=== PATIENT | female | born 1975 | race Caucasian/White ===

== ENCOUNTER 2018-02-10 03:28 | Emergency (ER) | payer OTHER, SELFPAY ==
--- NOTE | 2018-02-10 03:30 | ED_ITS ---
HPI - Dizziness General Chief Complaint: Dizziness Stated Complaint: FEELS DIZZY AND NAUSEAOUS Time Seen by Provider: 02/10/18 03:29 Source: patient Mode of arrival: ambulatory Limitations: no limitations History of Present Illness HPI Narrative: Patient is a 43-year-old female with a history of non-insulin- dependent diabetes and high cholesterol here for evaluation of vertigo and nausea and vomiting. Patient states that it occurred prior to arrival. She states she was lying in bed not having any symptoms which she turned to her side and had a sudden onset of room spinning sensation. She states that she did feel like her heart was beating fast at the time however she states that she ?always has a high heart rate ?. Patient states she became extremely nauseous at the time. States that she did feel better after she vomited. Upon my evaluation in the emergency department she reported a great improvement in her symptoms. Denied any other neurologic symptoms. Did not pass out. No trauma. States that she has had this in the past. However Has never been diagnosed with vertigo in the past. She states the last time this happened she became very nauseous and then threw up and felt much better afterwards. Related Data Home Medications Medication Instructions Recorded Confirmed amlodipine [Norvasc] 5 mg PO QDAY #0 tab 02/24/16 atorvastatin [Lipitor] 20 mg PO HS #30 tab 02/24/16 empagliflozin [Jardiance] 10 mg PO #0 02/24/16 glipizide 10 mg PO BID #0 03/15/17 Previous Rx's Medication Instructions Recorded norethindrone acetate 5 mg tablet 10 mg PO DAILY #60 tab 01/05/18 meclizine 25 mg PO BID-TID PRN #20 tab 02/10/18 Allergies Allergy/AdvReac Type Severity Reaction Status Date / Time latex Allergy Mild RASH Unverified 10/06/17 11:57 nickel Allergy Mild RASH Unverified 10/06/17 11:57 Review of Systems Constitutional Denies fatigue, Denies fever(s) and Denies headache(s) Eyes Denies diplopia and Denies dry eyes ENT Ears, Nose, Mouth, and Throat: Reports vertigo, Reports dizziness, Denies headache(s), Denies neck pain and Denies tinnitus Cardiovascular Denies chest pain, Reports rapid heart rate, Denies palpitations and Denies dyspnea Respiratory Denies dyspnea Gastrointestinal Gastrointestinal: Denies abdominal pain, Reports nausea and Reports vomiting Musculoskeletal Denies myalgias, Denies arthralgias and Denies neck pain Integumentary/Breasts Denies lesions and Denies rash Neurologic Reports vertigo, Reports dizziness and Denies headache(s) Endocrine Denies fatigue and Denies palpitations Hematologic/Lymphatic Denies easy bleeding and Denies easy bruising [facility] Medical History Diabetes (Acute) Hyperlipidemia (Acute) Surgical History History of third molar tooth extraction Status post dilation and curettage Status post tonsillectomy and adenoidectomy Family History Brother Age: 46 Heart disease Mother Age: 69 Multiple sclerosis Social History Smoking Status: Never smoker Exam Initial Vital Signs Initial Vital Signs: Vital Signs Temperature 97.6 F 02/10/18 03:37 Pulse Rate 114 H 02/10/18 03:37 Respiratory Rate 20 02/10/18 03:37 Blood Pressure 150/86 H 02/10/18 03:37 Pulse Oximetry 98 02/10/18 03:37 Const General: cooperative, healthy appearing, comfortable, well developed, well groomed and No acute distress Orientation: alert, awake and oriented x3 HENMT Head: normal to inspection, normocephalic and atraumatic Ears: TM's normal bilaterally Nose: external nose normal Face and sinus: normal facial exam Mouth: oral mucosae normal Throat: posterior oropharynx normal Eyes General: appearance normal, both eyes and all related structures Pupils: PERRL EOM: EOM intact bilaterally Resp Effort & Inspection: normal respiratory effort Auscultation: clear to auscultation bilaterally Cardio Rate: tachycardic Rhythm: regular rhythm Heart Sounds: murmur systolic III/ Pulses: radial pulses present Neuro General: alert, awake and oriented x3 Cranial Nerves: CN's II-XI intact bilaterally Cognition: normal cognition Speech: speech normal Gait: normal gait Motor: muscle tone normal throughout Sensory Exam: no sensory deficits noted Extrem General: normal to inspection and capillary refill normal Psych Appearance: grossly normal and well kempt Course Orders Ordered: Discontinued Medications Meclizine HCl (Antivert) 25 mg PO NOW ONE Stop: 02/10/18 03:48 Vital Signs - 8 hr 02/10/18 03:37 Temperature 97.6 F Pulse Rate 114 H Respiratory Rate 20 Blood Pressure 150/86 H Pulse Oximetry 98 MDM - Dizziness MDM Narrative Medical decision making narrative: Patient is tachycardic however she states that she always has a high heart rate. Does have a systolic ejection murmur which the patient states she has never been diagnosed with in the past. Did have positional vertigo. She reports her symptoms have greatly improved prior to my evaluation compared with the onset of the symptoms prior to arrival. She states that she got much better after she threw up. Has a nonfocal neurologic exam here in the ER. Will hold on head CT or labs for now. Heart rate is fast however regular, does not fit the physical exam for atrial fibrillation. Patient was given meclizine here in the emergency department. Will send home with a prescription for this medicine. She was given return precautions. She expressed understanding and agreement with plan. Discharge Plan Departure Patient Disposition: Home, Self-Care Clinical Impression: Vertigo Instructions: Vertigo (Alternative Therapy), DI for Vertigo Activity Restrictions/Additional Instructions: Continue all of your medications at home. The prescription that you were given this evening is and as needed medicine. Return to the emergency department for any new symptoms, worsening symptoms, symptoms associated with headaches, passing out, irregular heartbeats, numbness and tingling the arms and legs or any other concerning symptoms. Prescriptions: New meclizine 25 mg tablet 25 mg PO BID-TID PRN (Reason: motion sickness) Qty: 20 RF: 0 No Action empagliflozin [Jardiance] 10 MG tablet 10 mg PO Qty: 0 RF: 0 atorvastatin [Lipitor] 20 MG tablet 20 mg PO HS Qty: 30 RF: 0 amlodipine [Norvasc] 5 MG tablet 5 mg PO QDAY Qty: 0 RF: 0 glipizide 10 MG tablet 10 mg PO BID Qty: 0 RF: 0 norethindrone acetate [Aygestin] 5 mg tablet 10 mg PO DAILY Qty: 60 RF: 1
[2018-02-10 03:37] VITALS: BP 150/86; PULSE 114; RESP 20; TEMP 36.4; O2SAT 98; BMI 40.7
[2018-02-10] MEDS: MECLIZINE HCL 12.5 MG TABLET 25 MG PO (03:54)
[2018-02-10 04:16] VITALS: BP 149/81; PULSE 96; RESP 18; O2SAT 98
== END 2018-02-10 04:16 | disposition home or self-care (01) ==
PROVIDERS: Emergency Provider Emergency Medicine
DX: R42 Dizziness and giddiness (principal)
CPT/HCPCS: 99282; 99283

== ENCOUNTER 2018-03-19 08:05 | Emergency (ER) | payer OTHER, SELFPAY ==
[2018-03-19 08:18] VITALS: BP 165/90; PULSE 90; RESP 14; TEMP 37.1; O2SAT 100
--- NOTE | 2018-03-19 08:18 | ED.UPPEXIN ---
HPI - Extremity Injury (Upper) General Chief Complaint: Extremity Injury, Upper Stated Complaint: left shoulder pain Time Seen by Provider: 03/19/18 08:15 Source: patient Mode of arrival: ambulatory Limitations: no limitations History of Present Illness HPI narrative: 43-year-old nonsmoking female with history of hypertension and hyperlipidemia presents with left upper extremity pain after trying to get into her clothing after shower last night. While putting her left arm through the sleeve of assured she felt a pop and now has ongoing pain. She has not taken any medications to help her pain. She denies history of shoulder injury. She denies numbness, tingling or weakness. She is otherwise well and free of complaint. Her pain is worse with motion and improves with rest MD complaint: injury to: left and shoulder Onset (ago): hour(s) Other injuries: none Handedness: right Place: home Severity: mild Relieving factors: rest Exacerbating factors: movement of extremity Associated symptoms: denies other symptoms Related Data Home Medications Medication Instructions Recorded Confirmed amlodipine [Norvasc] 5 mg PO QDAY #0 tab 02/24/16 atorvastatin [Lipitor] 20 mg PO HS #30 tab 02/24/16 empagliflozin [Jardiance] 10 mg PO #0 02/24/16 glipizide 10 mg PO BID #0 03/15/17 Previous Rx's Medication Instructions Recorded meclizine 25 mg PO BID-TID PRN #20 tab 02/10/18 norethindrone acetate 5 mg tablet 10 mg PO DAILY #60 tab 03/08/18 ketorolac 10 mg PO Q6H PRN #14 tab 03/19/18 Allergies Allergy/AdvReac Type Severity Reaction Status Date / Time latex Allergy Mild RASH Unverified 10/06/17 11:57 nickel Allergy Mild RASH Unverified 10/06/17 11:57 Review of Systems Review of Systems All systems reviewed & are unremarkable except as noted in HPI and below Constitutional Denies chills, Denies fever(s), Denies lethargy and Denies weakness Eyes Denies change in vision, Denies eye discharge, Denies irritation and Denies loss of vision ENT Ears, Nose, Mouth, and Throat: Denies change in voice, Denies neck pain and Denies sore throat Cardiovascular Denies chest pain, Denies irregular heart rhythm, Denies lightheadedness, Denies palpitations, Denies dyspnea, Denies dyspnea on exertion and Denies orthopnea Respiratory Denies cough, Denies dyspnea, Denies dyspnea on exertion and Denies wheezing Gastrointestinal Gastrointestinal: Denies abdominal pain, Denies change in bowel habits, Denies diarrhea, Denies nausea and Denies vomiting Genitourinary Denies hematuria, Denies flank pain, Denies urinary incontinence and Denies urinary urgency Musculoskeletal Reports limited range of motion and Denies neck pain Integumentary/Breasts Denies pruritus, Denies erythema, Denies rash and Denies wounds Neurologic Denies confusion, Denies loss of vision and Denies weakness Psychiatric Denies anxiety, Denies confusion, Denies depression, Denies homicidal ideation and Denies suicidal ideation Endocrine Denies palpitations Hematologic/Lymphatic Denies easy bruising Allergic/Immunologic Denies wheezing [facility] Medical History Diabetes (Acute) Hyperlipidemia (Acute) Surgical History History of third molar tooth extraction Status post dilation and curettage Status post tonsillectomy and adenoidectomy Family History Brother Age: 46 Heart disease Mother Age: 69 Multiple sclerosis Social History Smoking Status: Never smoker Exam Narrative Exam Narrative: GEN: AOx3 and in mild distress EYES: Pupils are equal, round, and reactive to light and accommodation. Extraoccular muscles are intact bilaterally. There is no subconjunctival hemorrhage or exudate. CHEST: Lungs are clear to auscultation bilaterally and free of wheezes, rales, or rhonchi. Heart rate is regular rhythm, there are no murmurs, clicks, rubs, or gallops. There is no chest wall tenderness. ABD: Abdomen is soft and nontender. There is no guarding or rebound. Bowel sounds are normal in all 4 quadrants. There is no mass or organomegaly. EXT: Full but painful range of motion of left shoulder. Full strength, no numbness, tingling or weakness SKIN: Warm, pink, and dry. No erythema or rash Initial Vital Signs Initial Vital Signs: Vital Signs Temperature 98.8 F 03/19/18 08:18 Pulse Rate 90 03/19/18 08:18 Respiratory Rate 14 03/19/18 08:18 Blood Pressure 165/90 H 03/19/18 08:18 Pulse Oximetry 100 03/19/18 08:18 Procedures Orthopedic Splinting/Casting Injury #1: Side: left Upper Extremity Injury Location: shoulder Upper Extremity Immobilizer: sling/shoulder immobilizer Course Orders Ordered: Discontinued Medications Ibuprofen (Advil) 800 mg PO NOW ONE Stop: 03/19/18 08:30 Last Admin: 03/19/18 08:34 Dose: 800 mg Vital Signs - 8 hr 03/19/18 08:18 Temperature 98.8 F Pulse Rate 90 Respiratory Rate 14 Blood Pressure 165/90 H Pulse Oximetry 100 Discharge Plan Departure Patient Disposition: Home Clinical Impression: Muscle strain of left shoulder Discharge Date/Time: 03/19/18 08:53 Interventions: ED Discharge Assessment Last Done: 03/19/18 08:52 Instructions: DI for Shoulder Sprain Activity Restrictions/Additional Instructions: *You have been diagnosed with [ left shoulder strain ] *What to do: *Take medications as directed: Here prescription has been electronically transmitted to the [facility] at your request *Follow up with your primary care provider in 2-3 days, call for an appointment. Let them know you were seen in the Emergency Department and that we ask that you be seen in follow up *Return to ER if you should have any new, worsening or concerning symptoms Prescriptions: New ketorolac 10 mg tablet 10 mg PO Q6H PRN (Reason: pain) Qty: 14 RF: 0 No Action empagliflozin [Jardiance] 10 MG tablet 10 mg PO Qty: 0 RF: 0 atorvastatin [Lipitor] 20 MG tablet 20 mg PO HS Qty: 30 RF: 0 amlodipine [Norvasc] 5 MG tablet 5 mg PO QDAY Qty: 0 RF: 0 glipizide 10 MG tablet 10 mg PO BID Qty: 0 RF: 0 norethindrone acetate [Aygestin] 5 mg tablet 10 mg PO DAILY Qty: 60 RF: 1 meclizine 25 mg tablet 25 mg PO BID-TID PRN (Reason: motion sickness) Qty: 20 RF: 0
[2018-03-19] MEDS: IBUPROFEN 400 MG TABLET 800 MG PO (08:34)
== END 2018-03-19 08:53 | disposition home or self-care (01) ==
PROVIDERS: Emergency Provider Emergency Medicine
DX: S46.912A Strain of unspecified muscle, fascia and tendon at shoulder and upper arm level, left arm, initial encounter (principal); X50.9XXA Other and unspecified overexertion or strenuous movements or postures, initial encounter
CPT/HCPCS: 99282; 99283

== ENCOUNTER 2019-09-17 06:34 | Emergency (ER) | payer OTHER, SELFPAY ==
[2019-09-17 06:40] VITALS: BP 162/88; PULSE 117; RESP 19; TEMP 37.1; O2SAT 97; BMI 39.4
[2019-09-17 07:00] VITALS: BP 161/86; PULSE 124; RESP 33; O2SAT 98
--- NOTE | 2019-09-17 07:07 | ED.SOB ---
HPI - SOB/Dyspnea General Chief Complaint: Upper Respiratory Symptoms Stated Complaint: cough x10 days/exposure to virus Time Seen by Provider: 09/17/19 07:07 Source: patient Mode of arrival: Ambulatory Limitations: no limitations History of Present Illness HPI Narrative: 44-year-old female nonsmoker with history of diabetes presents after being contacted by [facility] for exposure to menjivar virus about 10 days ago. About a week ago she started developing cough but denies any headache, sore throat or fever. She denies any chest pain or significant shortness of breath. She denies any GI complaints such as nausea, vomiting or diarrhea outside of the normal for her. She denies any dysuria, frequency or urgency. She has had no recent travel. Patient placed in droplet precautions MD Complaint: shortness of breath and cough Onset (ago): day(s) Context: other Severity: moderate Consistency/Duration: intermittent Relieving factors: nothing Exacerbating factors: nothing Associated symptoms: denies other symptoms Treatment prior to arrival: none Related Data Home oxygen amount: none Previous Rx's Medication Instructions Recorded norethindrone acetate 5 mg tablet See Rx Instructions .ROUTE 07/25/19 .COMPLEX #60 tablet metformin 500 mg PO BID #20 tab 09/17/19 Allergies Allergy/AdvReac Type Severity Reaction Status Date / Time latex Allergy Mild RASH Verified 03/21/19 15:24 nickel Allergy Mild RASH Verified 03/21/19 15:24 Review of Systems Constitutional Constitutional: Denies chills, Denies fatigue, Denies fever(s), Denies frequent falls, Denies lethargy and Denies weakness Eyes Eyes: Denies change in vision, Denies eye discharge, Denies irritation and Denies loss of vision ENT Ears, Nose, Mouth, and Throat: Denies change in voice, Denies dizziness, Denies neck pain, Denies sore throat and Denies throat swelling Cardiovascular Cardiovascular: Denies chest pain, Denies irregular heart rhythm, Denies lightheadedness, Denies palpitations, Denies dyspnea, Denies dyspnea on exertion and Denies orthopnea Respiratory Respiratory: Reports cough, Denies dyspnea, Denies dyspnea on exertion and Denies wheezing Gastrointestinal Gastrointestinal: Denies abdominal pain, Denies change in bowel habits, Denies diarrhea, Denies nausea and Denies vomiting Genitourinary Genitourinary: Denies hematuria, Denies flank pain, Denies urinary incontinence and Denies urinary urgency Musculoskeletal Musculoskeletal: Denies back pain, Denies muscle weakness, Denies neck pain, Denies numbness and Denies tingling Integumentary/Breasts Skin/Breast: Denies pruritus, Denies erythema, Denies rash and Denies wounds Neurologic Neurologic: Denies behavioral changes, Denies confusion, Denies dizziness, Denies frequent falls, Denies loss of vision, Denies numbness, Denies tingling and Denies weakness Psychiatric Psychiatric: Denies anxiety, Denies behavioral changes, Denies confusion, Denies depression, Denies homicidal ideation and Denies suicidal ideation Endocrine Endocrine: Denies fatigue, Denies flushing and Denies palpitations Hematologic/Lymphatic Hematologic/Lymphatic: Denies easy bruising Allergic/Immunologic Allergic/Immunologic: Denies urticaria, Denies throat swelling and Denies wheezing Patient History Medical History Diabetes (Chronic) Hyperlipidemia (Chronic) Surgical History Anesthesia (Resolved) History of removal of cyst (Resolved 01/1994) History of third molar tooth extraction (Resolved) Status post dilation and curettage (Resolved 2013) Status post tonsillectomy and adenoidectomy (Resolved 1979) Family History Brother Age: 48 Heart disease Diabetes mellitus Mother Age: 71 Multiple sclerosis Brother No problems noted. Father No problems noted. Grandfather No problems noted. Grandmother Cancer Grandfather Heart disease Grandmother No problems noted. Social History Smoking Status: Former smoker Smoking Status: Former smoker Substance Use Type: does not use Exam Narrative Exam Narrative: GENERAL: [44] year old patient appears stated age. Well-nourished, well-developed patient, in mild distress. HEAD: Atraumatic. Normocephalic. EYES: Pupils equal round and reactive. Extraocular motions intact. No scleral icterus. No injection or drainage. ENT: Nose without bleeding, purulent drainage. Throat without erythema, tonsillar hypertrophy or exudate. Airway patent. NECK: Trachea midline. Non tender CARDIOVASCULAR: Tachycardic but regular rhythm without murmurs, gallops, or rubs. RESPIRATORY: Tachypneic Clear to auscultation. Breath sounds equal bilaterally. No wheezes, rales, or rhonchi. GASTROINTESTINAL: Abdomen soft, non-tender, nondistended. EXTREMITIES: No edema or joint tenderness. BACK: Nontender without deformity or crepitance. No flank tenderness. NEURO: AOx3. SKIN: No rash or erythema of visible areas Initial Vital Signs Initial Vital Signs: Vital Signs Temperature 98.7 F 09/17/19 06:40 Pulse Rate 117 H 09/17/19 06:40 Respiratory Rate 19 09/17/19 06:40 Blood Pressure 162/88 H 09/17/19 06:40 Pulse Oximetry 97 09/17/19 06:40 Course Orders Ordered: ED Orders 09/17/19 07:39 Chest [XR chest 1V] Stat 09/17/19 08:10 C-Reactive Protein Quant Stat Complete Blood Count AUTO DIFF Stat Comprehensive Metabolic Panel Stat Ferritin Stat Influenza A & B (PCR) Stat Lactate (Lactic Acid) Stat Procalcitonin Stat 09/17/19 08:49 CT chest wo con Stat 09/17/19 09:21 Blood Culture Stat Discontinued Medications Sodium Chloride (Normal Saline 0.9%) 1,000 mls @ 1,000 mls/hr IV BOLUS ONE Stop: 09/17/19 08:19 Last Infusion: 09/17/19 10:23 Dose: 0 mls/hr Documented by: Admin: 09/17/19 08:19 Dose: 1,000 mls/hr Documented by: MARIELA Vital Signs Vital signs: Vital Signs - 8 hr 09/17/19 06:40 09/17/19 07:00 09/17/19 07:30 Temperature 98.7 F Pulse Rate 117 H 124 H 112 H Respiratory Rate 19 33 H 28 H Blood Pressure 162/88 H Blood Pressure [Right Arm] 161/86 H 149/88 H Pulse Oximetry 97 98 98 09/17/19 08:30 09/17/19 09:13 09/17/19 10:22 Temperature 98.2 F Pulse Rate 105 H 106 H 101 H Respiratory Rate 32 H 28 H 26 H Blood Pressure Blood Pressure [Right Arm] 164/89 H 159/77 H 150/76 H Pulse Oximetry 100 99 99 MDM - SOB/Dyspnea Lab Data Result diagrams: 09/17/19 08:10 09/17/19 08:10 Labs: Lab Results 09/17/19 09/17/19 09/17/19 Range/Units 08:10 08:10 08:10 WBC (4.5-11.0) X10^3/uL RBC (4.0-5.2) X10^6/uL Hgb (12.0-16.0) g/dL Hct (36-46) % MCV (80-100) fL MCH (26-34) PG MCHC (30-36) % RDW (11.6-14.8) % Plt Count (150-400) X10^3/uL Neut % (Auto) (50-75) % Lymph % (Auto) (25-40) % Duchesne % (Auto) (3-14) % Eos % (Auto) (2-4) % Baso % (Auto) (0-2) % Neut # (Auto) (1522-0863) /uL Lymph # (Auto) (3342-9694) /uL Duchesne # (Auto) (0-900) /uL Eos # (Auto) (0-450) /uL Baso # (Auto) (0-100) /uL Sodium 137 (137-145) mmol/L Potassium 4.1 (3.4-5.1) mmol/L Chloride 101 (98-107) mmol/L Carbon Dioxide 26 (22-32) mmol/L BUN 5 L (7-17) mg/dL Creatinine 0.42 L (0.52-1.04) mg/dL Estimated GFR > 60.0 (>60) mL/min BUN/Creatinine Ratio 11.9 (6-22) Glucose 397 H (70-100) mg/dL Lactate (0.7-2.1) mmol/L Calcium 9.3 (8.4-10.2) mg/dL Ferritin 30 (6-137) ng/mL Total Bilirubin 0.4 (0.2-1.3) mg/dL AST 36 (14-36) IU/L ALT 38 H (<35) IU/L Alkaline Phosphatase 152 H (38-126) U/L C-Reactive Protein 4.0 H (<1.0) mg/dL Total Protein 7.6 (6.3-8.2) g/dL Albumin 4.0 (3.5-5.0) g/dL Globulin 3.6 (1.7-4.1) g/dL Albumin/Globulin Ratio 1.1 (1.0-2.8) Procalcitonin < 0.05 (<0.5) ng/mL Influenza A (RT-PCR) Flu a negative (NEGATIVE) Influenza B (RT-PCR) Flu b negative (NEGATIVE) 09/17/19 09/17/19 Range/Units 08:10 08:10 WBC 4.1 L (4.5-11.0) X10^3/uL RBC 5.06 (4.0-5.2) X10^6/uL Hgb 14.1 (12.0-16.0) g/dL Hct 42.3 (36-46) % MCV 83.6 (80-100) fL MCH 27.9 (26-34) PG MCHC 33.4 (30-36) % RDW 17.9 H (11.6-14.8) % Plt Count 205 (150-400) X10^3/uL Neut % (Auto) 48.7 L (50-75) % Lymph % (Auto) 35.7 (25-40) % Duchesne % (Auto) 13.9 (3-14) % Eos % (Auto) 1.3 L (2-4) % Baso % (Auto) 0.4 (0-2) % Neut # (Auto) 2000 (2819-9171) /uL Lymph # (Auto) 1400 (6613-9971) /uL Duchesne # (Auto) 600 (0-900) /uL Eos # (Auto) 100 (0-450) /uL Baso # (Auto) 0 (0-100) /uL Sodium (137-145) mmol/L Potassium (3.4-5.1) mmol/L Chloride (98-107) mmol/L Carbon Dioxide (22-32) mmol/L BUN (7-17) mg/dL Creatinine (0.52-1.04) mg/dL Estimated GFR (>60) mL/min BUN/Creatinine Ratio (6-22) Glucose (70-100) mg/dL Lactate 1.6 (0.7-2.1) mmol/L Calcium (8.4-10.2) mg/dL Ferritin (6-137) ng/mL Total Bilirubin (0.2-1.3) mg/dL AST (14-36) IU/L ALT (<35) IU/L Alkaline Phosphatase (38-126) U/L C-Reactive Protein (<1.0) mg/dL Total Protein (6.3-8.2) g/dL Albumin (3.5-5.0) g/dL Globulin (1.7-4.1) g/dL Albumin/Globulin Ratio (1.0-2.8) Procalcitonin (<0.5) ng/mL Influenza A (RT-PCR) (NEGATIVE) Influenza B (RT-PCR) (NEGATIVE) Imaging Data Chest x-ray: Radiologist's Impression: [address] [address] XRay Report Signed Patient: Sheila Beasley LMR#: [id number] : 1975Acct:[id number] Age/Sex: 44 / FDate of Service: 09/17/19 Loc: ED Accession Number: [id number] Procedure: XR chest 1V Ordering Provider: Nick Tejada D.O. PROCEDURE: XR CHEST 1V INDICATIONS: cough, possible covid exposure TECHNIQUE: One view of the chest was acquired. COMPARISON: [facility], MANI, CHEST 1 VIEW, 08/30/2014, 22:14. [facility], RG, XR CXR 2 VIEW, 08/12/2004, 21:54. FINDINGS: Surgical changes and devices: None. Lungs and pleura: Subtle patchy airspace disease appears to be present within the lungs, bilaterally. No effusion or pneumothorax is evident. Mediastinum: Mediastinal contours appear normal. Heart size is normal. Bones and chest wall: No suspicious bony lesions. Overlying soft tissues appear unremarkable. IMPRESSION: Patchy airspace disease is suspicious for pneumonia, which would be compatible with COVID-19. Dictated by: Luis Eduardo Naqvi M.D. on 09/17/2019 at 7:38 Approved by: Luis Eduardo Naqvi M.D. on 09/17/2019 at 7:39 Discharge Plan Departure Patient Disposition: Home Clinical Impression: Pneumonia, viral Discharge Date/Time: 09/17/19 10:41 Activity Restrictions/Additional Instructions: *You have been diagnosed with [ viral pneumonia, which based on your sympotoms, labs and imaging is highly suspicious for coronavirus] *What to do: * per recommendations from the CDC and the [facility] Department of Health * stay home except to get medical care. Restrict activities outside your home, except for getting medical care. Do not go to work, school, or public areas. Avoid using public transportation, ride sharing, or taxis. * separate herself from other people in your home. * call ahead before visiting your doctor * Wear a facemask * Cover your coughs and sneezes * Clean your hands often * Avoid sharing household items * Clean all high-touch services every day * Monitor your symptoms and seek prompt medical attention if your illness is worsening, particularly with difficulty in breathing. Discussed continuing home isolation * for individuals with symptoms who are confirmed or suspected cases of COVID-19 and are directed to care for themselves at home, discontinue home isolation under the following conditions: 1. At least 72 hours have passed since recovery, defined as resolution of fever without the use of fever reducing medications, and improvement in respiratory symptoms (cough, shortness of breath) AND, 2. At least 7 days have passed since symptoms 1st appeared Individuals with laboratory confirmed COVID-19 who have not had any symptoms may discontinue home isolation when at least 7 days have passed since the date of their 1st COVID-19 diagnostic test and have had no subsequent illness Prescriptions: New metformin 500 mg tablet 500 mg PO BID Qty: 20 RF: 0 No Action norethindrone acetate 5 mg tablet See Rx Instructions .ROUTE .COMPLEX Qty: 60 RF: 1 Referrals: Regan Ghotra MD [Primary Care Provider] - Stand Alone Forms: Work Release Note ED Sign-out Cosign ED Attending Cosignature Attestation: I was immediately available in the department for consultation. This documentation has been reviewed and I agree with assessment and plan. Supervised by Nick Tejada DO
[2019-09-17 07:30] VITALS: BP 149/88; PULSE 112; RESP 28; O2SAT 98
--- NOTE | 2019-09-17 07:39 | DI.RAD.S_ITS ---
PROCEDURE: XR CHEST 1V INDICATIONS: cough, possible covid exposure TECHNIQUE: One view of the chest was acquired. COMPARISON: [facility], MANI, CHEST 1 VIEW, 08/30/2014, 22:14. [facility], RG, XR CXR 2 VIEW, 08/12/2004, 21:54. FINDINGS: Surgical changes and devices: None. Lungs and pleura: Subtle patchy airspace disease appears to be present within the lungs, bilaterally. No effusion or pneumothorax is evident. Mediastinum: Mediastinal contours appear normal. Heart size is normal. Bones and chest wall: No suspicious bony lesions. Overlying soft tissues appear unremarkable. IMPRESSION: Patchy airspace disease is suspicious for pneumonia, which would be compatible with COVID-19. Dictated by: Luis Eduardo Naqvi M.D. on 09/17/2019 at 7:38 Approved by: Luis Eduardo Naqvi M.D. on 09/17/2019 at 7:39
[2019-09-17] MEDS: SODIUM CHLORIDE 0.9% 1,000 ML 1000 ML IV (08:19)
[2019-09-17 08:30] VITALS: BP 164/89; PULSE 105; RESP 32; O2SAT 100
[2019-09-17 08:46] LABS: Alanine Aminotransferase 38 IU/L (<35); Albumin Globulin Ratio 1.1 (1.0-2.8); Alkaline Phosphatase 152 U/L (38-126); Aspartate Aminotransferase 36 IU/L (14-36); BUN Creatinine Ratio 11.9 (6-22); Bilirubin Total 0.4 mg/dL (0.2-1.3); Blood Urea Nitrogen 5 mg/dL (7-17); Calcium 9.3 mg/dL (8.4-10.2); Carbon Dioxide 26 mmol/L (22-32); Chloride 101 mmol/L (98-107); Estimated Glomerular Filt Rate > 60.0 mL/min (>60); Globulin 3.6 g/dL (1.7-4.1); Glucose 397 mg/dL (70-100); HEMOLYSIS < 15 (0-50); Potassium 4.1 mmol/L (3.4-5.1); Sodium 137 mmol/L (137-145); Total Protein 7.6 g/dL (6.3-8.2)
--- NOTE | 2019-09-17 08:49 | DI.CT.S_ITS ---
PROCEDURE: CT CHEST WO CON INDICATIONS: SOB< cough, fever TECHNIQUE: Noncontrast 5 mm thick sections acquired from the pulmonary apices to the posterior costophrenic angles. 1 mm lung window, 5 mm thick coronal and sagittal and 7 mm axial MIP reformats were then acquired. For radiation dose reduction, the following was used: automated exposure control, adjustment of mA and/or kV according to patient size. COMPARISON: None. FINDINGS: Image quality: Excellent. Lungs and pleura: Patchy in areas of consolidation with surrounding groundglass attenuation are identified diffusely throughout the lungs, bilaterally. These are slightly more prominent along the periphery of the bilateral lung bases. No effusion or pneumothorax is evident. No lung mass or definite pulmonary nodule is appreciated. In Mediastinum: Heart size is normal. No pericardial effusion. No mediastinal adenopathy by size criteria. Thoracic aorta and central pulmonary arteries are normal in size. Esophagus is normal in caliber. No hiatal hernia. Bones and chest wall: No suspicious bony lesions. No vertebral body compression fractures. A lucent lesion is identified involving the T5 vertebral body, which may be degenerative in origin or represent a hemangioma. Mild degenerative changes of the thoracic spine are present. No axillary or supraclavicular adenopathy by size criteria. Thyroid gland is not enlarged or adequately evaluated on CT.. Abdomen: Visualized upper abdominal solid organs and bowel loops appear normal in the absence of contrast. IMPRESSION: Patchy areas of consolidation within the lungs is compatible with multifocal pneumonia, suggesting COVID-19 infection. Please correlate clinically. Dictated by: Luis Eduardo Naqvi M.D. on 09/17/2019 at 8:28 Approved by: Luis Eduardo Naqvi M.D. on 09/17/2019 at 8:31
[2019-09-17 08:57] LABS: Influenza A - CEPHEID Flu A NEGATIVE (NEGATIVE); Influenza B - CEPHEID Flu B NEGATIVE (NEGATIVE)
[2019-09-17 08:59] LABS: Procalcitonin < 0.05 ng/mL (<0.5)
[2019-09-17 09:13] VITALS: BP 159/77; PULSE 106; RESP 28; O2SAT 99
[2019-09-17 09:17] LABS: Ferritin 30 ng/mL (6-137)
[2019-09-17 09:20] LABS: Add Manual Diff / Slide Review NO; Basophils Absolute Auto 0 /uL (0-100); Basophils Percent Auto 0.4 % (0-2); Eosinophils Absolute Auto 100 /uL (0-450); Eosinophils Percent Auto 1.3 % (2-4); Hematocrit 42.3 % (36-46); Hemoglobin 14.1 g/dL (12.0-16.0); Lymphocytes Absolute Auto 1400 /uL (1100-4500); Lymphocytes Percent Auto 35.7 % (25-40); Mean Corpuscular HGB Conc 33.4 % (30-36); Mean Corpuscular Hemoglobin 27.9 PG (26-34); Mean Corpuscular Volume 83.6 fL (80-100); Monocytes Absolute Auto 600 /uL (0-900); Monocytes Percent Auto 13.9 % (3-14); Neutrophils Absolute Auto 2000 /uL (1500-7000); Neutrophils Percent Auto 48.7 % (50-75); Platelet Count 205 X10^3/uL (150-400); Red Blood Cell Count 5.06 X10^6/uL (4.0-5.2); Red Cell Distribution Width 17.9 % (11.6-14.8); White Blood Cell Count 4.1 X10^3/uL (4.5-11.0)
[2019-09-17 09:24] LABS: Lactate (Lactic Acid) 1.6 mmol/L (0.7-2.1)
[2019-09-17 10:22] VITALS: BP 150/76; PULSE 101; RESP 26; TEMP 36.8; O2SAT 99
[2019-09-20 10:43] LABS: COVID19 Sendout Detected (Not Detected)
== END 2019-09-17 10:41 | disposition home or self-care (01) ==
PROVIDERS: Emergency Provider Emergency Medicine; PCP Internal Medicine
DX: Z03.818 Encounter for observation for suspected exposure to other biological agents ruled out (principal); J12.9 Viral pneumonia, unspecified; R06.02 Shortness of breath; R05 Cough; E11.9 Type 2 diabetes mellitus without complications; E78.5 Hyperlipidemia, unspecified
CPT/HCPCS: 36415; 71045; 71250; 80053; 82728; 83605; 84145; 85025; 86140; 87040; 87502; 87635; 93005; 96360; 96361; 99284; 99285

== ENCOUNTER → 2020-07-19 15:01 | Outpatient (ROUT) | payer SELFPAY ==
[2020-07-19 15:14] LABS: Add Manual Diff / Slide Review NO; Basophils Absolute Auto 100 /uL (0-100); Basophils Percent Auto 0.7 % (0-2); Eosinophils Absolute Auto 100 /uL (0-450); Eosinophils Percent Auto 1.1 % (2-4); Hematocrit 46.3 % (36-46); Hemoglobin 15.2 g/dL (12.0-16.0); Lymphocytes Absolute Auto 1900 /uL (1100-4500); Mean Corpuscular HGB Conc 32.9 % (30-36); Mean Corpuscular Hemoglobin 30.9 PG (26-34); Mean Corpuscular Volume 93.8 fL (80-100); Monocytes Absolute Auto 800 /uL (0-900); Monocytes Percent Auto 9.1 % (3-14); Neutrophils Absolute Auto 5800 /uL (1500-7000); Neutrophils Percent Auto 67.1 % (50-75); Platelet Count 233 X10^3/uL (150-400); Red Blood Cell Count 4.93 X10^6/uL (4.0-5.2); Red Cell Distribution Width 12.6 % (11.6-14.8); White Blood Cell Count 8.7 X10^3/uL (4.5-11.0)
[2020-07-19 15:18] LABS: Blood Urea Nitrogen 10 mg/dL (7-17); Calcium 9.5 mg/dL (8.4-10.2); Carbon Dioxide 23 mmol/L (22-32); Chloride 98 mmol/L (98-107); Estimated Glomerular Filt Rate > 60.0 mL/min (>60); Glucose 367 mg/dL (70-100); HEMOLYSIS 17 (0-50); Potassium 3.9 mmol/L (3.4-5.1); Sodium 132 mmol/L (137-145)
== END ==
PROVIDERS: PCP Internal Medicine; Visit Provider Internal Medicine
DX: E11.9 Type 2 diabetes mellitus without complications (principal)
CPT/HCPCS: 80048; 85025